=== PATIENT | female | born 1945 | race Caucasian/White ===

== ENCOUNTER → 2023-08-25 08:16 | Outpatient (REF) | payer BC, SELFPAY | LOC: MRI 3T 08:16 | PROVIDERS: ATTENDING PHYSICIAN Specialist; FAMILY PHYSICIAN Family Medicine | DX: M25.511 Pain in right shoulder (principal); Z98.890 Other specified postprocedural states; M19.011 Primary osteoarthritis, right shoulder | CPT/HCPCS: 73221 ==

== ENCOUNTER 2023-10-27 06:51 | Emergency (ER) | payer MEDICARE, BC, SELFPAY ==
[2023-10-27] VITALS (7 sets, daily range): BP systolic 152–184; BP diastolic 73–101; BMI 26.7
--- NOTE | 2023-10-27 07:36 | ED.GENMED ---
History of Present Illness
General
Chief Complaint: Chest Pain
Source: patient
Exam Limitations: none
Time Seen by Provider: 10/27/23 07:19
Nursing documentation reviewed up to this point in time: agreed with
Travel History
Have you had any contact with someone who has COVID-19?: No
Do you have any symptoms of coronavirus? Fever > 100 degrees, chills, cough, shortness of breath, sore throat, loss of taste or smell, muscle aches, or headache?: No
History of Present Illness
History of Present Illness:
78-year-old female presents to the ER for evaluation of chest pain. Patient reports she was awoken by midsternal chest discomfort on 5:30 AM. She reports the chest pain is still there. Because of the discomfort she cannot take a deep breath. She
denies feeing Short of breath. She denies any associated nausea vomiting diaphoresis. She denies any recent illness fever chills cough. She does report she fell a couple of days ago and hit her arm. She denies any head injury . She does report she
is under a lot of stress and reports her nephew recently got killed. She has been eating different foods that she normally would not eat and thought it may be an upset stomach and did take Tums which did not relieve her symptoms. She has no
cardiac history. She is a history of Parkinson's and migraines. none smoker
Past History
Past History
ED Past Medical History: Hypercholesterolemia and Other (migraines)
ED Past Surgical History: Orthopedic (rotator cuff repair)
Social History
Tobacco: Non-smoker
Review of Systems
Review of Systems
Allergies reviewed?: Yes
All Other Systems: ROS reviewed and negative except as documented in HPI and ROS
Constitutional: Reports no symptoms; Denies fever, fatigue or chills
Respiratory: Reports other (pain to chest with deep breath ); Denies trouble breathing
Cardiac: Reports chest pain
ABD/GI: Reports no symptoms
Phy Exam
General Physical Exam
General Presentation: no apparent distress
General age: appears stated age
General Skin: warm and dry
General Habitus: elderly
General Mental: alert
General Hydration: appears well hydrated
Cardiovascular Exam
Cardiovascular Exam: regular rate/rhythm, no murmur and normal peripheral pulses
Pulmonary Exam
Pulmonary Exam: lungs clear, no respiratory distress and other (mild midsternal tenderness no crepitus no ecchymosis to chest )
Musculoskeletal Exam
Musculoskeletal Exam: full ROM and other (Left upper arm ecchymosis nontender)
Scores
Heart Score for Chest Pain Patients
STEMI patient?: Not applicable
Course
Orders/Labs/Results
Orders:
Orders
10/27/23 06:57
Electrocardiogram (*1) Urgent
Reason for Study: Chest Pain
EKG- Treatment ONCE
10/27/23 07:41
Cardiac Monitoring- Treatment ONCE
IV Insert/Care/Rem.- Treatment PRN
CR Chest - 2 Views Urgent
Comment:
Reason For Exam: cp
10/27/23 07:52
Complete Blood Count/With Diff Urgent
Comprehensive Metabolic Panel Urgent
Troponin I Urgent
10/27/23 08:39
DDimer [D-Dimer] Urgent
10/27/23 09:55
Ketorolac [Toradol] 15 mg IV NOW STA
10/27/23 10:43
Electrocardiogram (*1) Stat
Reason for Study: Other
Other Reason for Exam: chest pain
EKG- Treatment ONCE
10/27/23 10:50
Troponin I Urgent
Abnormal Lab Results
10/27/23
07:52
RBC 3.59 L 10^6/uL
(4.20-5.40)
Hgb 11.3 L g/dL
(12.0-16.0)
Hct 33.1 L %
(37.0-47.0)
MCH 31.5 H pg
(27.0-31.0)
MPV 10.6 H fL
(7.4-10.4)
Absolute Neuts (auto) 7.5 H 10^3/uL
(1.4-6.5)
Absolute Monos (auto) 0.8 H 10^3/uL
(0.1-0.6)
Lymphocytes % 16.1 L %
(20.5-51.1)
Glucose 120 H mg/dl
(70-99)
Calcium 10.5 H mg/dl
(8.4-10.2)
10/27/23 07:52
10/27/23 07:52
Vital Signs
Initial and Last Documented VS:
Initial Vital Signs
Pulse Resp BP Pulse Ox
92 20 182/101 96
10/27/23 06:54 10/27/23 06:54 10/27/23 06:54 10/27/23 06:54
Last Documented Vital Signs
Temp Pulse Resp BP Pulse Ox
98.5 F 92 18 164/73 94
10/27/23 07:06 10/27/23 10:30 10/27/23 10:30 10/27/23 10:00 10/27/23 10:30
MDM/Problems Addressed
Differential Diagnosis Includes:
Not limited to acute coronary syndrome, less likely PE musculoskeletal chest pain
MDM/Problems Addressed:
78 old female who presented to the ER for evaluation of chest pain worse with deep breath, not short of breath. She denies any recent fever or chills. She did fall several days ago and has a bruise to left upper arm. On exam she is very tender to
palpation worse with deep breath. She is no cardiac history. She received Toradol here which has given her some relief. She has been monitored here has had 2 negative cardiac troponins neg d dimer neg chest xray. d/c w/ DR Cha stable for
d/c home most likely muscular no other obvious concerning findings. Will DC with Tylenol.
*Radiology
Radiology exam reviewed: radiology read reviewed
*Pulse Oximetry
Patient hypoxic: no
*EKG
Interpretation: normal
Heart Rate: 91
Rate: normal
Rhythm: sinus
Ischemia: no ischemia
*Critical Care Note
Total Time (30-74mins, 75-104mins- exclusive of procedures): Not Applicable
ED Attending Note
-
Portions of this chart may have been created with voice recognition software.� Occasional wrong word or��sound alike� substitutions may have occurred due to the inherent limitations of voice recognition software.
Discharge Plan
Departure
Patient Disposition: Home (Routine Discharge)
Date of Disposition: 10/27/23
Time of Disposition: 12:07
Patient with high blood pressure during this ER visit?: Yes
Condition: Fair
Covid-19: Not Applicable
Discharge Problem:
Chest pain
Instructions: Chest Pain That Is Not Caused by the Heart (DC), BLOOD PRESSURE
Prescriptions:
No Action
atorvastatin 80 MG tablet
80 mg PO DAILY
olanzapine 7.5 MG tablet
7.5 mg PO HS
folic acid 1 MG tablet
1 mg PO DAILY
cyanocobalamin (vitamin B-12) 1,000 MCG capsule
1,000 mcg PO DAILY
Prolia 60 MG/ML syringe
60 mg SQ [id number]
Emgality Syringe 120 MG/ML syringe
120 mg SQ MONTHLY
Referrals:
Jeremi Benoit DO [Family Provider] -
Activity Restrictions/Additional Instructions:
As discussed you may take Tylenol every 6 hours as needed for pain. This is likely muscular pain. Follow-up however with your family doctor the next of days for reevaluation of your symptoms and return if any worsening of symptoms
Interventions
Interventions:
*Risk Screen - Suicide Last Done: 10/27/23 06:54
*General Assessment Last Done: 10/27/23 07:06
*Neglect/Abuse Screening Last Done: 10/27/23 06:54
ED- Fall Risk Assessment Last Done: 10/27/23 08:23
*ED COVID-19 Vaccine History Last Done: 10/27/23 07:06
ED- Cardiac Assessment Last Done: 10/27/23 08:23
Discharge Date and Time
Print Language: NAMIBIAN
[2023-10-27 08:12] LABS: % Basophils 0.5 % (0-2); % Eosinophils 4.7 % (0-6); % Immature Granulocytes 0.3 % (0-0.5); % Lymphocytes 16.1 % (20.5-51.1); % Monocytes 7.3 % (1.7-9.3); % Neutrophils 71.1 % (42.2-75.2); Absolute Basophils 0.1 10^3/uL (0-0.2); Absolute Eosinophils 0.5 10^3/uL (0-0.7); Absolute Lymphocytes 1.7 10^3/uL (1.2-3.4); Absolute Monocytes 0.8 10^3/uL (0.1-0.6); Absolute Neutrophils 7.5 10^3/uL (1.4-6.5); Hematocrit 33.1 % (37.0-47.0); Hemoglobin 11.3 g/dL (12.0-16.0); Mean Corp Hgb Conc. 34.1 g/dL (33.0-37.0); Mean Corpuscular Hgb 31.5 pg (27.0-31.0); Mean Corpuscular Volume 92.2 fL (81.0-99.0); Mean Platelet Volume 10.6 fL (7.4-10.4); Nucleated Red Blood Cells % 0 %; Platelet Count 282 10^3/uL (130-400); Red Blood Cell Count 3.59 10^6/uL (4.20-5.40); Red Cell Dist. Width 13.9 % (11.5-14.5); White Blood Cell Count 10.5 10^3/uL (4.8-10.8)
[2023-10-27 08:16] LABS: ALT (SGPT) 22 U/L (0-35); AST (SGOT) 29 U/L (14-36); Albumin 4.9 g/dl (3.5-5.0); Alkaline Phosphatase 86 U/L (38-126); Blood Urea Nitrogen 11 mg/dl (7-17); Calcium 10.5 mg/dl (8.4-10.2); Carbon Dioxide 25 mmol/L (22-30); Chloride 107 mmol/L (98-107); Estimated Creatinine Clearance 43 ml/min; Glucose 120 mg/dl (70-99); Potassium 3.6 mmol/L (3.5-5.1); Sodium 142 mmol/L (135-145); Total Bilirubin 0.7 mg/dl (0.2-1.3); Total Protein 7.5 g/dl (6.3-8.2); eGFR 58.39
[2023-10-27 08:27] LABS: Troponin I < 0.012 ng/ml
[2023-10-27] MEDS: TORADOL 15 MG IV (10:12)
[2023-10-27 11:20] LABS: Troponin I < 0.012 ng/ml
== END 2023-10-27 12:29 | disposition home or self-care (01) ==
LOC: EMR 06:51
PROVIDERS: Nurse Practitioner; EMERGENCY PHYSICIAN Emergency Medicine; FAMILY PHYSICIAN Family Medicine
DX: R07.89 Other chest pain (principal)
CPT/HCPCS: 99285; 96374; 71046; 80053; 84484; 85025; 85379; 93005

== ENCOUNTER 2024-09-29 15:21 | Outpatient (RCR) | payer BC, SELFPAY | END 2024-09-29 23:59 | disposition home or self-care (01) | LOC: RPT 15:21 | PROVIDERS: ATTENDING PHYSICIAN Urology; FAMILY PHYSICIAN Family Medicine | DX: R15.9 Full incontinence of feces (principal); M62.89 Other specified disorders of muscle; N32.81 Overactive bladder; N39.41 Urge incontinence; N31.9 Neuromuscular dysfunction of bladder, unspecified; Z73.6 Limitation of activities due to disability | CPT/HCPCS: 97110; 97161; 97530 ==

== ENCOUNTER 2024-10-15 09:47 | Outpatient (RCR) | payer BC, SELFPAY | END 2024-10-15 23:59 | disposition home or self-care (01) | LOC: RPT 09:47 | PROVIDERS: ATTENDING PHYSICIAN Urology; FAMILY PHYSICIAN Family Medicine | DX: R15.9 Full incontinence of feces (principal); M62.89 Other specified disorders of muscle; N32.81 Overactive bladder; N39.41 Urge incontinence; N31.9 Neuromuscular dysfunction of bladder, unspecified; Z73.6 Limitation of activities due to disability | CPT/HCPCS: 97110 ==

== ENCOUNTER 2024-11-19 19:00 | Outpatient (RCR) | payer BC, SELFPAY | END 2024-11-20 12:08 | disposition home or self-care (01) | LOC: RPT 19:00 | PROVIDERS: ATTENDING PHYSICIAN Urology; FAMILY PHYSICIAN Family Medicine | DX: R15.9 Full incontinence of feces (principal); M62.89 Other specified disorders of muscle; N32.81 Overactive bladder; N39.41 Urge incontinence; N31.9 Neuromuscular dysfunction of bladder, unspecified; Z73.6 Limitation of activities due to disability | CPT/HCPCS: 97110 ==

== ENCOUNTER 2024-11-28 10:55 | Outpatient (RCR) | payer BC, SELFPAY | END 2024-11-28 23:59 | disposition home or self-care (01) | LOC: RPT 10:55 | PROVIDERS: ATTENDING PHYSICIAN Family Medicine | DX: G20.A1 Parkinson's disease without dyskinesia, without mention of fluctuations (principal); Z73.6 Limitation of activities due to disability; R26.89 Other abnormalities of gait and mobility; M62.81 Muscle weakness (generalized); Z91.81 History of falling | CPT/HCPCS: 97110; 97112; 97116; 97163; 97166; 97530; 97535 ==

== ENCOUNTER 2024-12-02 11:26 | Outpatient (RCR) | payer BC, SELFPAY | END 2024-12-16 06:58 | disposition home or self-care (01) | LOC: RPT 11:26 | PROVIDERS: ATTENDING PHYSICIAN Family Medicine | DX: G20.A1 Parkinson's disease without dyskinesia, without mention of fluctuations (principal); Z73.6 Limitation of activities due to disability; R26.89 Other abnormalities of gait and mobility; M62.81 Muscle weakness (generalized); Z91.81 History of falling | CPT/HCPCS: 97110; 97112; 97116; 97530 ==

== ENCOUNTER 2025-01-08 06:45 | Observation (INO) | payer BC, SELFPAY ==
[2025-01-07 23:06] VITALS: BP 142/77
[2025-01-07 23:48] LABS: Hematocrit 33.4 % (37.0-47.0); Hemoglobin 11.4 g/dL (12.0-16.0); Mean Corp Hgb Conc. 34.1 g/dL (33.0-37.0); Mean Corpuscular Volume 92.3 fL (81.0-99.0); Nucleated Red Blood Cells % 0 %; Platelet Count 165 10^3/uL (130-400); Red Cell Dist. Width 13.3 % (11.5-14.5)
[2025-01-08] VITALS (11 sets, daily range): BP systolic 106–150; BP diastolic 47–76; BMI 25.2; BMI 24.9
[2025-01-08 00:11] LABS: ALT (SGPT) < 10 U/L (0-35); AST (SGOT) 18 U/L (14-36); Albumin 4.8 g/dl (3.5-5.0); Alkaline Phosphatase 46 U/L (38-126); Blood Urea Nitrogen 15 mg/dl (7-17); Calcium 9.9 mg/dl (8.4-10.2); Carbon Dioxide 30 mmol/L (22-30); Chloride 101 mmol/L (98-107); Glucose 104 mg/dl (70-99); Potassium 3.9 mmol/L (3.5-5.1); Sodium 139 mmol/L (135-145); Total Protein 7.3 g/dl (6.3-8.2); eGFR 51.75
[2025-01-08 00:23] LABS: Troponin I < 0.012 ng/ml
--- NOTE | 2025-01-08 02:39 | ED.GENMED ---
History of Present Illness
General
Chief Complaint: Chest Pain
Time Seen by Provider: 01/08/25 01:35
History of Present Illness
History of Present Illness:
see MDM
Past History
Past History
ED Past Medical History: Hypercholesterolemia and Other (migraines)
ED Past Surgical History: Orthopedic (rotator cuff repair)
Social History
Tobacco: Non-smoker
Phy Exam
Physical Exam
Physical Exam:
GENERAL: Alert , in no apparent distress actually looks very well-appearing
EYE: pupils equal and reactive
NECK: Supple
ENT: o/p clr, mmm.
CARDIAC: Regular rate and rhythm .
LUNGS: Clear breath sounds bilaterally, no acute respiratory distress, no wheezes/rales/rhonchi
ABDOMEN: Soft, mild epigastric tenderness no r/g, no cvat, normal bowel sounds
NEUROLOGICAL: Alert and oriented, no focal neuro deficits
SKIN: Warm and dry, skin intact.
MUSCULOSKELETAL: No edema, well perfused. neg killian's sign
PSYCH: Normal and appropriate interaction.
Scores
Heart Score for Chest Pain Patients
STEMI patient?: No
History: Moderately Suspicious
ECG: Normal
Age: >/= 65 years
Risk Factors: 1 or 2 Risk Factors
Troponin: </= Normal Limit
Heart Score for Chest Pain Patients: 4
Heart Score Risk: 20.3% MACE over next 6 weeks
Course
Orders/Labs/Results
Orders:
Orders
01/07/25 23:09
ECG [Electrocardiogram (*1)] Urgent
Reason for Study: Chest Pain
EKG- Treatment ONCE
01/07/25 23:31
Complete Blood Count/With Diff Urgent
Comprehensive Metabolic Panel Urgent
Lipase Urgent
Comment: ADD ON
Troponin I Urgent
01/08/25 02:24
Electrocardiogram (*1) Urgent
Reason for Study: Chest Pain
EKG- Treatment ONCE
Diphenhydramine [Benadryl] 50 mg IV NOW STA
Hydrocortisone Sod Succinate [Solu-Cortef] 200 mg IV NOW STA
Metoclopramide [Reglan] 10 mg IV NOW STA
01/08/25 02:30
0.9% Sodium Chloride 1000 ml [Nss] 1,000 ml IV BOLUS
01/08/25 02:40
Add On- LAB Urgent
Tests Added?: lipase
Troponin I Urgent
01/08/25 02:41
D-Dimer Urgent
01/08/25 03:26
CT Abd/Pel (IV only)-DH only Urgent
Comment:
Reason For Exam: nausea, vomiting, upper abd pain
CR Chest - 2 Views Urgent
Comment:
Reason For Exam: chsest pressure
01/08/25 04:58
US Abdomen Complete/Upper Urgent
Comment:
Reason For Exam: uppera bdpain, vomiting, nausea, dilated cbd
01/08/25 06:30
CARDIOLOGY CONSULT Routine
Consulting Provider: Yong Huddleston
Was physician already notified: No
Reason for consult: chest pain
01/08/25 06:32
Consult Notification Routine
Specialty to Notify: Cardiology
01/08/25 06:35
Mrcp Without MR [MR Mrcp Without] Routine
Comment:
Reason For Exam: gall bladder dilation, with MRI
Recent pill cam endoscopy?: No
01/08/25 06:36
Admit/Transfer Patient As Directed
Co-Sign Provider:
Level of Care: Observation services
Assign to:: Telemetry
Physician / Group: Hospitalist
Diagnosis: chest pain
Reason for Telemetry: Chest Pain syndromes
Date to Stop Telemetry: 01/10/25
Time to Stop Telemetry: 11:00
PRN Pain Medication Management As Directed
May give lesser potent ordered pain med per pt: Yes
preference::
Protocol:: Medication orders for pain may be administered in a
manner that supports deferring to patient preference
when the pt is:
- Requesting an ordered lesser potent pain medication.
Least to most potent pain medications are defined
as: acetaminophen < NSAID < tramadol < opioids
(morphine, oxycodone, hydromorphone).
- Requesting a lesser dose of the same medication IF
ORDERED.
- Requesting a less intrusive route of administration
if both routes are prescribed by the provider (PO <
IV).
01/08/25 06:37
Code Status As Directed
Resuscitation Status: Full Code
01/08/25 06:42
UA Reflex to Culture [Urinalysis Reflex To Culture] Stat
Ipratropium/Albuterol Sulfate [Duoneb] 3 ml INH R Q4HPRN PRN
01/10/25 11:00
DC Protocol for Telemetry ONCE
Abnormal Lab Results
01/07/25
23:31
RBC 3.62 L 10^6/uL
(4.20-5.40)
Hgb 11.4 L g/dL
(12.0-16.0)
Hct 33.4 L %
(37.0-47.0)
MCH 31.5 H pg
(27.0-31.0)
MPV 12.8 H fL
(7.4-10.4)
Absolute Monos (auto) 0.7 H 10^3/uL
(0.1-0.6)
Monocytes % 10.2 H %
(1.7-9.3)
Creatinine 1.1 H mg/dL
(0.6-1.0)
Glucose 104 H mg/dl
(70-99)
01/07/25 23:31
01/07/25 23:31
Vital Signs
Initial and Last Documented VS:
Initial Vital Signs
Temp Pulse Resp BP Pulse Ox
37.0 C 84 18 142/77 100
01/07/25 23:06 01/07/25 23:06 01/07/25 23:06 01/07/25 23:06 01/07/25 23:06
Last Documented Vital Signs
Temp Pulse Resp BP Pulse Ox
37.0 C 77 16 150/65 95
01/07/25 23:06 01/08/25 06:00 01/08/25 06:00 01/08/25 06:00 01/08/25 06:00
MDM/Problems Addressed
Differential Diagnosis Includes:
see mdm
MDM/Problems Addressed:
Note:
CHIEF COMPLAINT(S)
Chest pressure with associated nausea and jaw pain.
HISTORY OF PRESENT ILLNESS
The patient is a female presenting with reports of chest pressure that began at approximately 6:30 PM and has mildly progressively worsened throughout the evening. She describes the sensation as a pressure, not severe, but significant, enough to
rate as an eight out of ten in discomfort. Prior to this, she experienced nausea for about three days, which she described as intermittent, with a marked increase in severity around the same time the chest pressure began. Along with the chest
pressure, the patient reports associated jaw pain. She notes that the chest pressure does worsen with deep breathing and this is accompanied by feelings of shortness of breath. The patient has a history of vomiting twice in the past five days, but
denies diarrhea, constipation, fever, or chills.
The patient denies any history of blood clots, recent surgery, prolonged travel, or current hormone therapy. She has not been eating well in recent days due to nausea. Her medical history is significant for migraines and Parkinsons disease, for
which she takes carbidopa/levodopa. The patient denies having had pancreatitis and confirms retaining her gallbladder. Her past surgical history includes an appendectomy at age 14 following the discovery of a ruptured appendix.
CHRONIC MEDICAL CONDITIONS SIGNIFICANTLY AFFECTING CARE
1. Migraine
2. Parkinsons disease
PAST SURGICAL HISTORY
1. Appendectomy at age 14
REVIEW OF SYSTEMS
- Gastrointestinal: Nausea for three days, two episodes of vomiting in the past five days, last bowel movement yesterday. No diarrhea or constipation.
- Cardiovascular: Chest pressure rated as eight out of ten.
- Respiratory: Shortness of breath with chest pressure exacerbated on deep breathing.
- Neurological: Jaw pain, headache.
- General: No fever or chills.
PHYSICAL EXAM
- Cardiovascular: Chest pressure present, located in the chest area but not tender to touch.
- Nursing notes reviewed and vital signs reviewed.
PROBLEM LIST
Acute:
1. Chest pressure
2. Nausea and vomiting
3. Jaw pain
4. Headache
Chronic:
1. Migraine
2. Parkinsons disease
PLAN
1. Obtain repeat blood work to assess cardiac markers, given the concern for possible cardiac issues related to stress on the heart.
2. Initiate intravenous fluid therapy due to reduced oral intake and hydration status.
3. Consider abdominal imaging to evaluate for potential gastrointestinal causes of nausea and vomiting, such as gallstones or pancreatitis.
4. Administer Reglan (metoclopramide) with a small dose of intravenous Benadryl for both nausea and headache management, considering its efficacy in these situations.
DIFFERENTIAL DIAGNOSIS
The Differential Diagnosis includes, in no particular order and is not limited to:
1. Acute coronary syndrome
2. Gastroesophageal reflux disease
3. Peptic ulcer disease
4. Gallstones
5. Pancreatitis
6. Gastritis
7. Myocardial ischemia
8. Viral syndrome
9. Costochondritis
10. Musculoskeletal chest pain
01/08/25 - 05:04
- Patient reports slight improvement in nausea and pain, likely due to migraine management rather than pain medication.
- Cardiac enzymes are normal, ruling out myocardial infarction as the cause of chest pressure.
- CT scan reveals a distended gallbladder and dilated common bile duct, suggesting possible gallstones.
- Plan initiated for immediate ultrasound to investigate possible ductal obstruction by gallstones.
- If ultrasound is inconclusive, an MRI will be used to further assess the common bile duct.
- Discussed potential hospital admission with the patient, given symptoms and need for additional diagnostic imaging.
- GI consultation planned post-ultrasound results to determine need for possible surgical intervention.
- Provided reassurance regarding normal cardiac findings, reducing immediate concern for cardiac etiology of chest pressure.
*Pulse Oximetry
SaO2: 96
Oxygen Mode of Delivery: Room air
Patient hypoxic: no (100)
*Critical Care Note
Total Time (30-74mins, 75-104mins- exclusive of procedures): Not Applicable
ED Attending Note
-
Portions of this chart may have been created with voice recognition software.� Occasional wrong word or��sound alike� substitutions may have occurred due to the inherent limitations of voice recognition software.
Discharge Plan
Departure
Patient Disposition: Admit
Date of Disposition: 01/08/25
Time of Disposition: 06:00
Admit to: Med/Surg
Presentation/result/management discussed w/ accepting MD/DO: Hospitalist
Condition: Fair
Covid-19: Not Applicable
Discharge Problem:
Vomiting, Dilated cbd, acquired, Chest pain
Interventions
Interventions:
*Risk Screen - Suicide Last Done: 01/07/25 23:06
*General Assessment Last Done: 01/08/25 01:42
*Neglect/Abuse Screening Last Done: 01/07/25 23:06
*ED- Fall Risk Assessment Last Done: 01/08/25 01:42
*ED COVID-19 Vaccine History Last Done: 01/08/25 01:42
ED- Cardiac Assessment Last Done: 01/08/25 05:10
[2025-01-08] MEDS: BENADRYL 50 MG IV (02:43)
[2025-01-08] MEDS: NSS 1000 IV (02:43)
[2025-01-08] MEDS: REGLAN 10 MG IV (02:45)
[2025-01-08] MEDS: SOLU-CORTEF 200 MG IV (02:46)
[2025-01-08 03:03] LABS: D-Dimer < 0.27 ug/mlFEU (0.00-0.50)
[2025-01-08 03:11] LABS: Lipase 145 U/L (23-300)
[2025-01-08 03:13] LABS: Troponin I < 0.012 ng/ml
--- NOTE | 2025-01-08 06:39 | HPS.HSE ---
Family Physician
-
Family Physician: Jeremi Benoit
Chief Complaint
-
chest pain
History of Present Illness
79yo F with PMHx of Parkinsons, osteoporosis, migraines came with 5 days of chest pressure associated with SOB, intermittent and not related to excertion. She also did not have appetite for whole 5 days. No fever, no overt abdominal pain, no
diarrea, no dysuria, no persistent respiratory symptoms. In ED a number of test done and only concern is distended gall bladder and mild CBD dilation with normal LFT and lipase
Medical History
Past Medical History
Past Medical History: Reports Other
Additional Past Medical History:
see HPI
Past Surgical History: Reports None
Social History
Tobacco: Non-smoker
Alcohol: None
Drug: None
Family History
Family History: Not pertinent
Allergies / Home Medications
Allergies reflects when Allergies were last updated in [employer]
Home Medications with original date entered in [employer]
Allergy/Medication List:
Allergies
Allergy/AdvReac Type Severity Reaction Status Date / Time
azithromycin Allergy Rash Verified 01/07/25 23:09
IV contrast dye Allergy Rash Uncoded 01/07/25 23:09
Home Medications
atorvastatin 80 mg tablet 80 mg PO DAILY 10/14/20
denosumab 60 mg/mL subcutaneous syringe (Prolia) 60 mg SQ [id number] 10/15/20
Vitamin B3 2,000 units PO DAILY 01/08/25
carbidopa 25 mg-levodopa 100 mg tablet 2 tab PO TID 01/08/25
Review of Systems
-
History Source: Patient
A 12 point ROS was completed and negative except as noted: Yes
Physical Exam
Vital Signs
Vital Signs
Temp Pulse Resp BP Pulse Ox
98.6 F 77 16 150/65 95
01/07/25 23:06 01/08/25 06:00 01/08/25 06:00 01/08/25 06:00 01/08/25 06:00
Physical Exam
General: Well Nourished, No Apparent Distress and Comfortable
HEENT: NormoCephalic, Anicteric and Moist mucous membranes
Respiratory: Clear
Cardiac: S1/S2 and Regular Rhythm; No Tachycardia
GI: Soft, Non Tender, Non Distended and Normal Bowel Sounds
Genito-urinary: No costovertebral tender
Musculoskeletal: No Clubbing, No Cyanosis and No Edema
Neuro: Awake, Alert, Oriented, AO x 3 and No Motor Deficits
Psych: Calm
Laboratory Results
-
01/07/25 23:31
01/07/25 23:31
Laboratory Results
Total Bilirubin 0.8 mg/dl (0.2-1.3) 01/07/25 23:31
AST 18 U/L (14-36) 01/07/25 23:31
ALT < 10 U/L (0-35) 01/07/25 23:31
Alkaline Phosphatase 46 U/L (38-126) 01/07/25 23:31
Troponin I < 0.012 ng/ml 01/08/25 02:40
Lipase 145 U/L (23-300) 01/07/25 23:31
Data Reviewed
-
Diagnostic Radiology: Report Reviewed by me
CT Scan: Report Reviewed by me
Lab Data: Labs Reviewed by me
Impression/Plan
-
A/P:
#Concern for cholecystitis
#dilated bile duct
No overt signs of infection
MRCP with MRI
Hold ABx until results
cannot exclude GERD - start PPI
#Hyperinflated lungs
possible COPD
start nebulizer
Outpatient PFT with PCP advised
#Mild urinary bladder wall thickening
UA
#Chest pain
Trop WNL
EKG without acute ischemic changes
Cardio consult
#PArkinsons
#Migraine
#HLD
#Osteoporosis
cont home meds
DVT ppx hep
Full code
I have spent 78min admitting the patient
--- NOTE | 2025-01-08 08:05 | W.PN.UPDATE ---
Update Note
Progress Note Update
79-year-old woman with 5 days of chest pressure and dyspnea. Symptoms are not exertional. Anorexia.
PMH: Parkinson's, migraines, hypercholesterolemia, suspected COPD
PSH: None
SH/FH: See below
Outpatient meds: Atorvastatin, Sinemet, Prolia
ROS, rest of history: See below
150/65, pulse 77, respirate 16, afebrile, sats 95%
Hemoglobin 11.4, negative D-dimer, BUN/creatinine 15 and 1.1, troponin undetectable
ECG sinus rhythm nonspecific T wave changes
Abdominal ultrasound: Mildly dilated gallbladder and mildly enlarged common bile duct
Abdominal pelvic: CT bladder wall thickening
Chest x-ray: NAD
--- NOTE | 2025-01-08 08:53 | CON.CAR ---
Addendum entered and electronically signed by Pasquale Ledezma MD 01/08/25 09:39:
79-year-old woman with 5 days of chest pressure and dyspnea. Symptoms are not exertional. Anorexia.
PMH: Parkinson's, migraines, hypercholesterolemia, suspected COPD
PSH: None
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
Outpatient meds: Atorvastatin, Sinemet, Prolia
ROS, rest of history: See below
150/65, pulse 77, resprate 16, afebrile, sats 95%, head neck exam unremarkable, lungs are clear, systolic murmur probable that is moderate, possibly MR, abdomen benign extremities without clubbing cyanosis or edema
Hemoglobin 11.4, negative D-dimer, BUN/creatinine 15 and 1.1, troponin undetectable
ECG sinus rhythm nonspecific T wave changes
Abdominal ultrasound: Mildly dilated gallbladder and mildly enlarged common bile duct
Abdominal pelvic: CT bladder wall thickening
Chest x-ray: NAD
Impression:
Chest tightness
Suspected mild to moderate aortic stenosis, possibly with mitral regurgitation
Dilated common bile duct
Plan:
As outlined below by Myra Barreto.
Reviewed and detailed and agree unless otherwise specified.
Suspect her symptoms are noncardiac in nature given unremarkable EKG and undetectable troponin.
Check echocardiogram
However, probable eventual ischemic evaluation even though I am hopeful that her symptoms will proved to be noncardiac in nature
If MRCP suggest stones, would be okay to proceed with sphincterotomy prior to ischemic evaluation
We will follow.
Original Note:
Consultation
Consultation Request
Date/Time Consultation Performed: 01/08/25
Requesting Provider: Dr. Del Angel
Performing Provider: Bev Barreto PA-C for Dr. SANDY Ledezma
Reason for Consultation: CP, SOB
Medical History
-
Chief Complaint: CP, SOB
History of Present Illness:
Patient is a 79-year-old female with past medical history of Parkinson disease, migraines, hyperlipidemia, osteoporosis who presented to [facility] for evaluation of chest pressure. She reports last evening around 6:30 PM she was sitting
at her table and developed pressure across her bilateral chest and upper abdomen and felt as though she could not catch her breath. She had associated nausea and some jaw soreness as well. She reports she attempted to 'wait it out'. However at 11
PM it was still there so she came to the emergency room for further evaluation. She was given IV fluid as well as dose of Reglan, Benadryl, and Solu-Cortef. She reports her chest pain and shortness of breath have improved. She states she remains
with some nausea. EKG sinus rhythm without acute ST abnormalities and troponins negative x 2. Cardiology consulted for evaluation. She has never had this pain before. She is for MRCP today due to concern for possible cholecystitis.
PMH:
Parkinson's disease
Migraines
HLD
Osteoporosis
Past Medical History
Past Medical History: Other (in HPI)
Social History
Tobacco: Non-Smoker
Alcohol: None
Personal:
Living: With Family
Employment: Retired
Family History
Family History: Cancer and Other (heart disease)
Allergies / Home Medications
Allergy/AdvReac Type Severity Reaction Status Date / Time
azithromycin Allergy Rash Verified 01/07/25 23:09
IV contrast dye Allergy Rash Uncoded 01/07/25 23:09
�Medication �Instructions �Recorded �Confirmed �Type
atorvastatin 80 mg tablet 80 mg PO DAILY 10/14/20 01/08/25 History
denosumab 60 mg/mL subcutaneous 60 mg SQ [id number] 10/15/20 01/08/25 History
syringe (Prolia)
carbidopa ER 25 mg-levodopa 100 mg 2 tab PO TID 01/08/25 01/08/25 History
tablet,extended release
mirabegron 50 mg tablet,extended 50 mg PO DAILY 01/08/25 01/08/25 History
release 24 hr (Myrbetriq)
Review of Systems
-
History Source: Patient
All other systems: Negative unless noted
Physical Exam
Vital Signs
Temp Pulse Resp BP Pulse Ox
98.6 F 77 16 150/65 95
01/07/25 23:06 01/08/25 06:00 01/08/25 06:00 01/08/25 06:00 01/08/25 06:00
Lab Results
01/07/25 23:31
01/07/25 23:31
Troponin I < 0.012 ng/ml 01/08/25 02:40
Physical Exam
General: No Apparent Distress and Comfortable
HEENT: Normocephalic, Anicteric and Moist Mucous Membranes
Respiratory: Clear and Non Labored Respirations
Cardiac: S1/S2, Regular Rhythm and Murmur
GI: Soft, Non Tender, Non Distended and Normal Bowel Sounds
Musculoskeletal: No Clubbing, No Cyanosis and No Edema
Skin: Warm and Dry
Neuro: AO x 3
Impression / Plan
-
Primary Pawn Broker: none
Assessment:
Presentation with CP, SOB, nausea
Negative trops x2
Murmur
Concern for acute cholecystitis
Parkinson's disease
Migraines
HLD
Osteoporosis
ECHO 01/08/25: pending
Plan:
- Patient presented with episode of chest pain, shortness of breath, nausea
- Now improved and chest pain-free. Reports remains with some residual nausea
- EKG sinus rhythm with nonspecific ST T wave changes
- Troponins negative x 2
- Chest x-ray without acute cardiopulmonary process
- Check echo, ordered by me
- For MRCP today to rule out cholecystitis. Lipase and LFTs within normal limits
- May consider for eventual ischemic eval
Data Reviewed
-
EKG: Tracing Personally Visualized and interpreted
Radiology: Report Reviewed by me
Labs: Labs Reviewed by me
Old Records: Reviewed
[2025-01-08 11:23] LABS: Urine Character Clear (Clear)
[2025-01-08] MEDS: PROTONIX 40 MG PO (11:23)
[2025-01-08] MEDS: LIPITOR 80 MG PO (11:23)
[2025-01-08] MEDS: SINEMET 25-100 2 TABLET PO ×3 (11:23→21:21)
[2025-01-08] MEDS: HEPARIN 5000 UNITS SC ×2 (11:23→16:59)
--- NOTE | 2025-01-08 11:27 | CM ---
Patient seen at bedside on . Patient stated that she lives with her on a 2 story home with 2 steps to enter and 13 to 2nd floor. Patient stated that she is independent of ADL's and IADL's but is currently not driving. Patient PCP is
Dr. Lepe and she uses the [facility] in [place]. Patient stated that she plans to go home with no needs at this time. Patient completed OBS/RENDON form and signed form placed on chart. CM will continue to follow for discharge planning needs.
Plan; home with no needs vs home with VN
[2025-01-08 12:04] LABS: Urine Urothelial Cell 0-2 /LPF (FEW); Urine White Cell 0-2 /HPF (0-5)
[2025-01-08] MEDS: TYLENOL 650 MG PO (20:28)
[2025-01-09] VITALS (7 sets, daily range): BP systolic 102–133; BP diastolic 49–64
[2025-01-09] MEDS: HEPARIN 5000 UNITS SC ×3 (00:55→16:31)
--- NOTE | 2025-01-09 00:55 | W.PN.UPDATE ---
Update Note
Progress Note Update
~ 12:40 am TT and asked to see patient for rash on abdomen and b/l inner feet. Patient reports that she has an allergy to contrast dye. She reports that she had a CT and MRI early am yesterday, was pretreated prior to testing and has not had any
allergic symptoms. Patient reports that today around midnight, she started with itching on b/l feet and abdomen, which has intensified. Patient denies any SOB, chest discomfort, palpitations, nausea/vomiting. Vital signs are stable: HR 73, BP
131/50, Temp 98.6, Resp 16, 96% on room air.
Patient evaluated. Generalized, erythematous, flat, pruritic, rash covers entire abdomen and is radiating to sides and starting on back (RN to aline area). No rash on b/l legs. Small area of similar rash on inner b/l ankles that is slightly pink.
Lungs are clear, no wheezing, no stridor, noted. Ordered Benadryl 25 mg IV x 1 and Zyrtec 5 mg PO x 1.
Recheck ~ 1:50 am, only slight improvement in rash, still pruritic. Ordered additional Benadryl 25 mg IV x 1.
[2025-01-09] MEDS: BENADRYL 25 MG IV ×4 (01:06→20:29)
[2025-01-09] MEDS: ZYRTEC 5 MG PO (01:06)
[2025-01-09] MEDS: TYLENOL 1000 MG PO ×3 (01:37→18:30)
[2025-01-09] MEDS: LIPITOR 80 MG PO (08:26)
[2025-01-09] MEDS: PROTONIX 40 MG PO (08:26)
[2025-01-09] MEDS: SINEMET 25-100 2 TABLET PO ×3 (08:26→22:22)
--- NOTE | 2025-01-09 12:06 | W.PN.CARDCBS ---
Addendum entered and electronically signed by Pasquale Ledezma MD 01/09/25 17:16:
79-year-old woman with 5 days of chest pressure and dyspnea. Symptoms are not exertional. Anorexia.
PMH: Parkinson's, migraines, hypercholesterolemia, suspected COPD
PSH: None
Current medications: Atorvastatin 80 mg a day, Sinemet, pantoprazole, subcu heparin
Major complaint is pruritus which is new, no new medications
116/50, pulse 82, respiratory rate 16,, systolic murmur, lungs clear, abdomen benign, extremities without significant edema, neuro nonfocal
New labs today
MRCP: Mild intrahepatic bile duct dilatation and common hepatic duct and common bile duct dilatation, no stones or mass
Impression:
See below as per Mariana S - reviewed in detail and agree., Unless otherwise specified
Plan:
She is stable from a cardiac standpoint. No additional chest discomfort. Echo shows mild aortic stenosis, troponin and EKG were unremarkable.
Outpatient follow-up and stress testing arranged
We will sign off, please call if questions.
Original Note:
Today's Communication / Plan
-
Continue lipitor
OP stress testing and follow up arranged
Impression / Plan
-
Primary Doctor Of Nurse Anesthesia: none, initially seen by Dr. SANDY Ledezma
Assessment:
Presented with CP, SOB, nausea
Negative trops x2
Mild by echo 01/09/2025
Concern for acute cholecystitis
Parkinson's disease
Migraines
HLD
Osteoporosis
Echo 01/08/2025: EF 71%, mild MR, mild with peak/mean gradients 21/13 mmHg, SINA 1.5 cm�, mild AR, trace TR
Plan:
-Patient presented with episode of chest pain, shortness of breath, nausea. Remains chest pain-free overnight. No complaints this AM other than rash.
-Troponin negative x 2. EKG sinus rhythm with nonspecific ST-T wave changes.
-Echo 01/08 revealed preserved EF with no RWMA as noted above.
-She has been arranged for outpatient stress test to evaluate for coronary artery disease.
-Abdominal ultrasound 01/08/2025 with mildly prominent size gallbladder with mildly enlarged common bile duct. MRCP 01/08/2025 without evidence of bile duct calculus or obstructing mass.
-LFTs within normal limits. Continue Lipitor 80 mg daily.
-Outpatient cardiology follow-up arranged.
HPI: Patient is a 79-year-old female with past medical history of Parkinson disease, migraines, hyperlipidemia, osteoporosis who presented to [facility] for evaluation of chest pressure. She reports last evening around 6:30 PM she was
sitting at her table and developed pressure across her bilateral chest and upper abdomen and felt as though she could not catch her breath. She had associated nausea and some jaw soreness as well. She reports she attempted to 'wait it out'.
However at 11 PM it was still there so she came to the emergency room for further evaluation. She was given IV fluid as well as dose of Reglan, Benadryl, and Solu-Cortef. She reports her chest pain and shortness of breath have improved. She
states she remains with some nausea. EKG sinus rhythm without acute ST abnormalities and troponins negative x 2. Cardiology consulted for evaluation. She has never had this pain before. She is for MRCP today due to concern for possible
cholecystitis.
Progress Note - Doctor Of Nurse Anesthesia
Subjective
Date of Service: January 09, 2025
No further chest pain.
Objective
Labs:
01/07/25 23:31
01/07/25 23:31
Labs
Hgb 11.4 g/dL (12.0-16.0) L 01/07/25 23:31
Hct 33.4 % (37.0-47.0) L 01/07/25 23:31
Plt Count 165 10^3/uL (130-400) 01/07/25 23:31
Sodium 139 mmol/L (135-145) 01/07/25 23:31
Potassium 3.9 mmol/L (3.5-5.1) 01/07/25 23:31
BUN 15 mg/dl (7-17) 01/07/25 23:31
Creatinine 1.1 mg/dL (0.6-1.0) H 01/07/25 23:31
Glucose 104 mg/dl (70-99) H 01/07/25 23:31
Troponins
01/07/25 01/08/25
23:31 02:40
Troponin I < 0.012 < 0.012
Vital Signs and I&O:
Vital Signs
Temp Pulse Resp BP Pulse Ox
98.0 F 74 16 133/55 98
01/09/25 07:30 01/09/25 07:30 01/09/25 07:30 01/09/25 07:30 01/09/25 07:30
Vital Signs
Temp Pulse Resp BP Pulse Ox
98.0 F 74 16 133/55 98
01/09/25 07:30 01/09/25 07:30 01/09/25 07:30 01/09/25 07:30 01/09/25 07:30
Intake & Output
01/07/25 01/08/25 01/09/25 01/10/25
06:59 06:59 06:59 06:59
Intake Total 1080 / 1080
Balance 1080 / 1080
Physical Exam
Physical Exam
GEN: No distress, awake, alert, oriented x3
HEENT: supple, anicteric, mmm
LUNGS: CTA b/l, no wheezes/rales
CV: Reg, S1/S2, 1/6 syst murmur
EXT: No clubbing, cyanosis, or edema
NEURO: Gross non-focal
SKIN: Warm, dry
--- NOTE | 2025-01-09 14:06 | CON.GI ---
Consultation
-
Date/Time Consultation Performed: 01/09/25
Performing Provider: Will Howard MD
Reason for Consultation: cheset pain, dilated ducts
Medical History
Chief Complaint / HPI
Chief Complaint: chest pain
History of Present Illness:
The patient is a 79-year-old female past medical history as noted presents with chest pain. This happened acutely, without any symptoms like this before. This was not related to eating or exercise. She describes a pressure sensation that went to
her jaw with associated nausea. This did not radiate to her back. Again, she never had symptoms like this before. She has had no GI issues, and leading up to this is not had any weight loss, abdominal pain, nausea, vomiting. She is feeling much
better today, with no further issues, and tolerating diet without difficulty. Workup here did show initially CT scan with IV contrast a prominent gallbladder with mildly enlarged common bile duct. Ultrasound showed mildly prominent gallbladder but
no obvious stones. MRCP without contrast showed normal gallbladder and mild central intrahepatic duct dilation as well as common hepatic duct and common bile ducts without evidence of calculus or mass. She never had any significant GI issues or
she camp recreation specialist in the past. She denies any melena hematochezia or weight loss.
Past Medical History
Past Medical History: Other (Parkinson's, migraines, high cholesterol, osteoporosis)
Past Surgical History: Other (Rotator cuff)
Social History
Tobacco: Non-Smoker
Alcohol: None
Family History
Family History: Reviewed & Not Pertinent
Allergies / Home Medications
Allergy/AdvReac Type Severity Reaction Status Date / Time
azithromycin Allergy Rash Verified 01/07/25 23:09
Iodinated Contrast Media Allergy Rash Verified 01/08/25 19:25
�Medication �Instructions �Recorded
atorvastatin 80 mg tablet 80 mg PO DAILY High Cholesterol 10/14/20
denosumab 60 mg/mL subcutaneous 60 mg SQ [id number] bone health 10/15/20
syringe (Prolia)
carbidopa ER 25 mg-levodopa 100 mg 2 tab PO TID movement disorder 01/08/25
tablet,extended release
mirabegron 50 mg tablet,extended 50 mg PO DAILY Urinary Issue 01/08/25
release 24 hr (Myrbetriq)
Review of Systems
-
All other systems: A 12 pt ROS was Negative except as stated above in HPI
Vital Signs
Temp Pulse Resp BP Pulse Ox
97.6 F 82 16 116/50 93
01/09/25 12:00 01/09/25 12:00 01/09/25 12:00 01/09/25 12:00 01/09/25 12:00
Physical Exam
Exam
General: NAD
HEENT: MMM, anicteric, no lymphadenopathy
Heart: Regular, no murmurs
Lungs: CTA bilaterally
Abdomen: normal bowel sounds, soft, no tenderness, no rebound or guarding, no masses, bruits or ascites
Extremeties: no edema
Skin: no rashes
Results
WBC 6.4 10^3/uL (4.8-10.8) 01/07/25 23:31
Hgb 11.4 g/dL (12.0-16.0) L 01/07/25 23:31
Hct 33.4 % (37.0-47.0) L 01/07/25 23:31
MCV 92.3 fL (81.0-99.0) 01/07/25 23:31
Plt Count 165 10^3/uL (130-400) 01/07/25 23:31
Absolute Neuts (auto) 2.9 10^3/uL (1.4-6.5) 01/07/25 23:31
Sodium 139 mmol/L (135-145) 01/07/25 23:31
Potassium 3.9 mmol/L (3.5-5.1) 01/07/25 23:31
Chloride 101 mmol/L (98-107) 01/07/25 23:31
Carbon Dioxide 30 mmol/L (22-30) 01/07/25:
BUN 15 mg/dl (7-17) 01/07/25:
Creatinine 1.1 mg/dL (0.6-1.0) H 01/07/25
Calcium 9.9 mg/dl (8.4-10.2) 01/07/25
Total Bilirubin 0.8 mg/dl (0.2-1.3) 01/07/25
AST 18 U/L (14-36) 01/07/25:
ALT < 10 U/L (0-35) 01/07/25
Alkaline Phosphatase 46 U/L (38-126) 01/07/25
Lipase 145 U/L (23-300) 01/07/25
Diagnostic Image Results:
CT with iv contrast:
IMPRESSION:
Gallbladder somewhat prominent in size without findings to confirm cholelithiasis. Mildly enlarged common bile duct without findings to confirm intrahepatic biliary tract dilatation. Please see separate concurrent Abdominal Ultrasound report.
At least mild relative diffuse thickening of the wall the urinary bladder due to underdistention. Other etiology such as cystitis cannot be excluded. Suggest correlation with urinalysis.
Subcentimeter low-attenuation right renal lesion too small to characterize.
US:
IMPRESSION: Mildly prominent size gallbladder and mildly enlarged common bile duct.
Otherwise, unremarkable Abdominal ultrasound.
MRCP:
IMPRESSION: Normal appearance of the gallbladder.
Mild central intrahepatic bile duct dilation with mild dilation of the common hepatic duct and the common bile duct. There is no evidence for bile duct calculus. There is no evidence for an obstructing mass. Of note, patient's liver function tests
are within normal limits on January 07, 2025.
Prior GI Procedures:
EGD:
Colonoscopy:
Assessment / Plan
-
1. Chest pain/dilated ducts: Overall atypical chest pain, unclear etiology. Her ducts are mildly dilated, though LFTs are normal and CT scan with contrast did not show any obvious pancreatic mass, ultrasound without any obvious gallstones, MRCP
without any obvious stones or stricture. Again, with normal LFTs biliary colic seems much less likely though not completely excluded, and neither is pancreatic malignancy though again does seem less likely. At this point given dilated ducts will
repeat MRI with and without contrast to further assess pancreatic anatomy. Will continue trend LFTs, and if MRI and LFTs are normal then is okay to DC from GI standpoint.
-
-
Thank you for consultation and allowing me to participate in the patient's care. Please call the refrigeration lead GI physician during the after hours with any questions or concerns.
--- NOTE | 2025-01-09 14:49 | W.PN.HOSP.TC ---
Today's Communication/Plan
-
GI consult
DC planning
Assessment / Plan
Assessment / Plan
A/P:
Chest pressure with nausea and decreased appetite for 5 days
Imaging initially raise concern for gallbladder disease/biliary ductal disease
MRI of abdomen and MRCP shows unexpired biliary ductal dilatation but no gallbladder disease. LFTs and lipase were normal. Unclear etiology for ductal dilatation. Consult GI
Had a cardiac evaluation for chest pressure which showed no evidence of acute coronary syndrome. Echo noted. Appreciate cardiology input. No further inpatient recommendation. The plan to arrange outpatient stress test.
cannot exclude GERD - start PPI
#Hyperinflated lungs
possible COPD
Asymptomatic without wheeze currently
Outpatient PFT with PCP advised
#Mild urinary bladder wall thickening
Asymptomatic without dysuria frequency of urine. Suspect the gallbladder wall thickening may be secondary to underdistention
UA shows no pyuria
#PArkinsons
#Migraine
#HLD
#Osteoporosis
cont home meds
DVT ppx hep
Full code
Tolerating diet.
Will obtain a GI eval and depending we will have discharge plan for today
Anticipated Discharge: Today
Subjective/Interval History
-
Date of Service: January 09, 2025
No further chest pressure. Good appetite now. Harder lunch without any issues.
Never had GI issues, GERD, biliary disease, gallbladder disease.
It all started 5 days ago when she started to have intense nausea where she could not eat and then 2 days ago she started out of chest pressure which was intermittent and continuous at times so she presented to the hospital.
She had some itching issue yesterday but none today.
She apparently is allergic to IV contrast media but she did get premedication.
No fever chills.
Denies any shortness of breath.
No lightheadedness.
Objective Data
-
Vital Signs:
Vital Signs
Temp Pulse Resp BP Pulse Ox
97.6 F 82 16 116/50 93
01/09/25 12:00 01/09/25 12:00 01/09/25 12:00 01/09/25 12:00 01/09/25 12:00
I&O
01/08/25 01/09/25 01/10/25
06:59 06:59 06:59
Intake Total 1080 / 1080
Balance 1080 / 1080
Physical Exam
-
General: Comfortable
Respiratory: Non Labored Respirations; Negative Accessory Resp Muscle Use
Cardiac: Regular Rhythm and S1/S2; Negative Tachycardic
GI: Soft, Nondistended, Normal Bowel Sounds and Tender (Some discomfort in epigastric area)
Neuro: AO x 3
Psych: Calm
Data Reviewed
-
MRI: Report Reviewed by me (MRI of abdomen and MRCP)
Labs: Labs Reviewed by me (From admission)
[2025-01-10] MEDS: HEPARIN 5000 UNITS SC ×2 (00:26→08:43)
[2025-01-10] MEDS: TYLENOL 1000 MG PO (00:31)
[2025-01-10 03:04] VITALS: BP 115/61
[2025-01-10] MEDS: BENADRYL 25 MG IV (03:45)
[2025-01-10] MEDS: FIORICET 1 TAB PO (04:00)
[2025-01-10] MEDS: SOLU-CORTEF 100 MG IV (05:08)
[2025-01-10 06:42] LABS: ALT (SGPT) < 10 U/L (0-35); AST (SGOT) 24 U/L (14-36); Albumin 3.9 g/dl (3.5-5.0); Alkaline Phosphatase 57 U/L (38-126); Total Protein 6.0 g/dl (6.3-8.2)
[2025-01-10 07:50] VITALS: BP 119/58
--- NOTE | 2025-01-10 08:37 | W.PN.GI.CBS2 ---
Today's Communication / Plan
-
Please see assessment and plan for details.
Assessment / Plan
-
1. Chest pain/dilated ducts: Overall atypical chest pain, unclear etiology. Her ducts are mildly dilated, though LFTs are normal and CT scan with contrast did not show any obvious pancreatic mass, ultrasound without any obvious gallstones, MRCP
without any obvious stones or stricture. Repeat LFTs are again normal. At this point we will await MRI with and without contrast to more definitively rule out small pancreatic mass that could have been missed on CT scan and MRI without contrast.
If that is negative then is okay to DC from GI standpoint.
Subjective
Subjective
Date of Service: January 10, 2025
Patient feeling okay, no further episodes of pain, no nausea, vomiting, fever or chills.
Objective
Data Reviewed
Laboratory Data:
Laboratory Results
01/07/25 23:31
01/07/25 23:31
Laboratory Results
Total Bilirubin 0.5 mg/dl (0.2-1.3) 01/10/25 05:42
AST 24 U/L (14-36) 01/10/25 05:42
ALT < 10 U/L (0-35) 01/10/25 05:42
Alkaline Phosphatase 57 U/L (38-126) 01/10/25 05:42
Lipase 145 U/L (23-300) 01/07/25 23:31
Vital Signs and I&O:
Vital Signs
Temp Pulse Resp BP Pulse Ox
98.5 F 72 16 119/58 94
01/10/25 07:50 01/10/25 07:50 01/10/25 07:50 01/10/25 07:50 01/10/25 07:50
I&O
01/09/25 01/10/25 01/11/25
06:59 06:59 06:59
Intake Total 1080 / 1080 1280 / 1280
Balance 1080 / 1080 1280 / 1280
Physical Exam
Physical Exam
General: NAD
Abdomen: normal bowel sounds, soft, no tenderness, no masses or bruits, no ascites
[2025-01-10] MEDS: LIPITOR 80 MG PO (08:42)
[2025-01-10] MEDS: SINEMET 25-100 2 TABLET PO ×2 (08:43→16:14)
[2025-01-10] MEDS: SENOKOT-S 1 TABLET PO (08:43)
[2025-01-10] MEDS: PROTONIX 40 MG PO (08:43)
[2025-01-10 11:18] VITALS: BP 138/76
[2025-01-10] MEDS: BENADRYL 25 MG PO (12:03)
--- NOTE | 2025-01-10 14:16 | W.DCSUMMARY ---
Discharge Summary
Discharge Data
Date of Admission: 01/08/25
Date of Discharge: 01/10/25
-
Pending Results: No
Hospital Course
Primary diagnosis:
Chest pressure with nausea and decreased appetite-unclear etiology
Secondary diagnosis:
Parkinson's disease
Migraine headaches
Hyperlipidemia
Osteoporosis
Hospital course:
Patient presented with acute onset of chest pressure with nausea and decreased appetite for 5 days. No prior history of gallbladder disease. Initial imaging raise the concern for gallbladder disease/biliary ductal disease as there was dilatation
of ductal anatomy. She had an MRI of the abdomen and MRCP which shows unexplained biliary ductal dilatation with no gallbladder disease. LFTs and lipase were normal. GI was consulted who requested an MRI with and without contrast to look for any
pancreatic disease and it showed no evidence of pancreatic disease but showed mild ductal dilatation without choledocholithiasis. LFTs remain normal. She had self limiting GI symptoms and chest pressure. With all the imaging showing no pathology
no further testing was recommended by GI.
She was also seen by cardiology and there was no evidence of acute NC. She had an echocardiogram which showed normal EF, mild aortic stenosis. Recommended outpatient stress test which they will arrange.
Today she was without any recurrence of GI symptoms or chest pressure. She was asymptomatic. She was tolerating diet. Abdomen was soft and nontender today. Afebrile, pulse 83 blood pressure 138/76.
Consultants on board:
GI-Hank Boogie
Cardiology-Pasquale Malin
Discharge Plan
-
Others Tests: You are scheduled for lexiscan nuclear stress test at [facility] 01/15/25 @11:20AM. Please go to the main lobby restaurant front manager to register and they will direct you accordingly.
Referrals:
Jeremi Benoit DO [Family Provider, Family Practice]
Mariana Hernandez PA-C [Specified Professional Personl, Cardiology] - 01/28/25 2:00 pm
Referral Note: You have a cardiology follow-up appointment at the [place] office. Please call with questions
Prescriptions:
No Action
atorvastatin 80 MG tablet
80 mg PO DAILY
Prolia 60 MG/ML syringe
60 mg SQ [id number]
carbidopa-levodopa 25-100 mg Tablet Extended Release
2 tab PO TID
mirabegron [Myrbetriq] 50 mg Tablet Extended Release 24 Hr
50 mg PO DAILY
Discharge Date and Time
Print Language: JAPANESE
[2025-01-10 15:25] VITALS: BP 111/52
== END 2025-01-10 16:30 | disposition home or self-care (01) ==
LOC: 3 WEST ACU 06:45
PROVIDERS: Physician Assistant; Student in an Organized Health Care Education/Training Program; ADMITTING PHYSICIAN Internal Medicine; ATTENDING PHYSICIAN Internal Medicine; CONSULT PHYSICIAN Internal Medicine Gastroenterology; EMERGENCY PHYSICIAN Emergency Medicine; FAMILY PHYSICIAN Family Medicine; OTHER PHYSICIAN Internal Medicine Cardiovascular Disease
DX: R07.89 Other chest pain (principal); R11.0 Nausea; R63.0 Anorexia; E78.00 Pure hypercholesterolemia, unspecified; G20.A1 Parkinson's disease without dyskinesia, without mention of fluctuations; M81.0 Age-related osteoporosis without current pathological fracture; G43.909 Migraine, unspecified, not intractable, without status migrainosus; Z68.24 Body mass index [BMI] 24.0-24.9, adult; Z79.899 Other long term (current) drug therapy; Z82.49 Family history of ischemic heart disease and other diseases of the circulatory system
CPT/HCPCS: 71046; 74177; 74181; 74183; 76700; 80053; 80076; 81003; 81015; 83690; 84484; 85025; 85379; 93005; 93306; 96361; 96374; 96375; 99285; A9585; G0378; Q9967

== ENCOUNTER 2025-01-13 20:57 | Emergency (ER) | payer BC, SELFPAY ==
[2025-01-13 21:02] VITALS: BP 98/63
[2025-01-13 21:40] LABS: COVID-19 Antigen Negative (Negative)
--- NOTE | 2025-01-13 23:23 | ED.GENMED ---
History of Present Illness
General
Chief Complaint: Breathing Problem
Source: patient and spouse
Time Seen by Provider: 01/13/25 23:11
History of Present Illness
History of Present Illness:
79-year-old female presents to the emergency room complaining of dyspnea. Patient states she feels like she is not able to breathe properly and cannot get a deep breath. Symptoms began around 430 this afternoon. Patient also is experiencing
itching which has been present since her recent hospitalization. Patient was admitted for chest /abdominal discomfort recently having been discharged 4 days ago. She was admitted to evaluate possible common bile duct dilatation. Workup was
negative. She also had a cardiology evaluation which was negative here. She is supposed to follow-up for an outpatient stress test.
Past History
Past History
ED Past Medical History: Hypercholesterolemia and Other (migraines)
ED Past Surgical History: Orthopedic (rotator cuff repair)
Social History
Tobacco: Non-smoker
Phy Exam
Physical Exam
Physical Exam:
General: Awake, Alert, Oriented X3. Appears uncomfortable
Vitals: Normal pulse ox, normal heart rate
Head: Atraumatic
Eyes: Pupils equal, EOMI
Throat: Airway intact, no exudates
Neck: Trachea midline
Lungs: Clear and equal b/l
Heart: Regular rate, no murmurs
Abd: Soft, Nontender, No pulsatile mass
Neuro: Nonfocal
Skin: Warm, dry, no rash
Extremities: pulses equal b/l, no edema
Scores
Heart Failure Risk
Heart Failure Risk Score: Not Applicable
Course
Orders/Labs/Results
Orders:
Orders
01/13/25 21:10
COVID-19 Antigen Urgent
Source: Nasal Swab
Influenza A+B Rapid Molecular Urgent
NOEMI Source: Nasal Swab
Specimen Description:
01/13/25 23:21
Diphenhydramine [Benadryl] 50 mg IV NOW STA
Hydrocortisone Sod Succinate [Solu-Cortef] 200 mg IV NOW STA
01/13/25 23:22
Electrocardiogram (*1) Stat
Reason for Study: Other
Other Reason for Exam: chest pain
Cardiac Monitoring- Treatment ONCE
EKG- Treatment ONCE
01/13/25 23:41
Complete Blood Count/With Diff Urgent
Comprehensive Metabolic Panel Urgent
Troponin I Urgent
01/14/25
CT Chest PE Study Urgent
Reason For Exam: sob
01/14/25 00:15
Potassium Chloride 10% Elixir [KCl Elixir] 40 meq PO NOW STA
Abnormal Lab Results
01/13/25
23:41
RBC 3.71 L 10^6/uL
(4.20-5.40)
Hgb 11.7 L g/dL
(12.0-16.0)
Hct 33.6 L %
(37.0-47.0)
MCH 31.5 H pg
(27.0-31.0)
MPV 11.9 H fL
(7.4-10.4)
Absolute Monos (auto) 0.9 H 10^3/uL
(0.1-0.6)
Monocytes % 11.5 H %
(1.7-9.3)
Potassium 3.0 L mmol/L
(3.5-5.1)
Glucose 100 H mg/dl
(70-99)
01/13/25 23:41
01/13/25 23:41
Vital Signs
Initial and Last Documented VS:
Initial Vital Signs
Temp Pulse Resp BP Pulse Ox
98.0 F 100 18 98/63 99
01/13/25 21:02 01/13/25 21:02 01/13/25 21:02 01/13/25 21:02 01/13/25 21:02
Last Documented Vital Signs
Temp Pulse Resp BP Pulse Ox
98.0 F 73 17 131/61 94
01/13/25 21:02 01/14/25 02:15 01/14/25 02:00 01/14/25 02:00 01/14/25 02:00
MDM/Problems Addressed
Differential Diagnosis Includes:
Symptomatic anemia, allergic reaction, PE, ACS
MDM/Problems Addressed:
Patient presents with a sense of dyspnea. Her vital signs are normal. She does not appear to have any increased work of breathing. Workup here is unremarkable including labs, CT of the chest. Potassium was a bit low and oral potassium
supplementation was given. No evidence for any unstable process. Patient stable for discharge home.
*Radiology
Radiology exam reviewed: radiology read reviewed
*Pulse Oximetry
SaO2: 99
Patient hypoxic: no
*EKG
Interpreted by ED Provider?: Yes
Interpretation: normal
Heart Rate: 71
Rate: normal
Rhythm: sinus
[place]: normal axis
Interval: normal interval
QRS Pattern: normal QRS
Ischemia: no ischemia
*Pressure Tester Interpretation
Rate: normal
Interpretation: normal
Rhythm: sinus
*Critical Care Note
Total Time (30-74mins, 75-104mins- exclusive of procedures): Not Applicable
Data Reviewed
Review of Other/Old Records Reveals: Testing and Discharge Summary
ED Attending Note
-
Portions of this chart may have been created with voice recognition software.� Occasional wrong word or��sound alike� substitutions may have occurred due to the inherent limitations of voice recognition software.
Discharge Plan
Departure
Patient Disposition: Home (Routine Discharge)
Date of Disposition: 01/14/25
Time of Disposition: 02:12
Patient with high blood pressure during this ER visit?: Yes
Condition: Good
Discharge Problem:
Acute dyspnea
Instructions: Shortness of Breath (Dyspnea) (DC)
Prescriptions:
No Action
atorvastatin 80 MG tablet
80 mg PO DAILY
Prolia 60 MG/ML syringe
60 mg SQ [id number]
mirabegron [Myrbetriq] 50 mg Tablet Extended Release 24 Hr
50 mg PO DAILY
acetaminophen [Tylenol Extra Strength] 500 mg Tablet
1,000 mg PO Q6HPRN PRN (Reason: mild pain)
carbidopa-levodopa 25-100 mg Tablet
2 tab PO TID
Niacin (Vitamin B3)
2,000 unit PO DAILY
Referrals:
Jeremi Benoit DO [Family Provider, Family Practice]
Interventions
Interventions:
*Risk Screen - Suicide Last Done: 01/13/25 21:04
*General Assessment Last Done: 01/13/25 21:04
*Neglect/Abuse Screening Last Done: 01/13/25 21:04
*ED- Fall Risk Assessment Last Done: 01/14/25 00:58
*ED COVID-19 Vaccine History Last Done: 01/14/25 00:58
Discharge Date and Time
Print Language: TONGAN
[2025-01-13 23:49] LABS: Hematocrit 33.6 % (37.0-47.0); Hemoglobin 11.7 g/dL (12.0-16.0); Mean Corp Hgb Conc. 34.8 g/dL (33.0-37.0); Mean Corpuscular Volume 90.6 fL (81.0-99.0); Nucleated Red Blood Cells % 0 %; Platelet Count 211 10^3/uL (130-400); Red Cell Dist. Width 13.7 % (11.5-14.5)
[2025-01-13 23:52] VITALS: BMI 25.0
[2025-01-13] MEDS: BENADRYL 50 MG IV (23:53)
[2025-01-13] MEDS: SOLU-CORTEF 200 MG IV (23:53)
[2025-01-14] VITALS: BP 148/70
[2025-01-14 00:04] LABS: AST (SGOT) 23 U/L (14-36); Albumin 4.8 g/dl (3.5-5.0); Alkaline Phosphatase 51 U/L (38-126); Blood Urea Nitrogen 12 mg/dl (7-17); Calcium 9.5 mg/dl (8.4-10.2); Carbon Dioxide 24 mmol/L (22-30); Chloride 103 mmol/L (98-107); Estimated Creatinine Clearance 43 ml/min; Glucose 100 mg/dl (70-99); Potassium 3.0 mmol/L (3.5-5.1); Sodium 137 mmol/L (135-145); Total Protein 7.2 g/dl (6.3-8.2); eGFR > 60.00
[2025-01-14 00:16] LABS: Troponin I < 0.012 ng/ml
[2025-01-14 00:24] LABS: ALT (SGPT) < 30 U/L (0-35)
[2025-01-14 01:17] VITALS: BP 151/61
[2025-01-14] MEDS: KCL ELIXIR 40 MEQ PO (01:18)
[2025-01-14 02:00] VITALS: BP 131/61
== END 2025-01-14 02:40 | disposition home or self-care (01) ==
LOC: EMR 20:57
PROVIDERS: Emergency Medicine; EMERGENCY PHYSICIAN Emergency Medicine; FAMILY PHYSICIAN Family Medicine
DX: R06.00 Dyspnea, unspecified (principal); L29.9 Pruritus, unspecified; Z11.52 Encounter for screening for COVID-19; R03.0 Elevated blood-pressure reading, without diagnosis of hypertension; E78.00 Pure hypercholesterolemia, unspecified; G43.909 Migraine, unspecified, not intractable, without status migrainosus; Z88.1 Allergy status to other antibiotic agents; Z91.041 Radiographic dye allergy status
CPT/HCPCS: 99284; 96374; 96375; 71275; 80053; 84484; 85025; 87502; 87811; 93005; Q9967

== ENCOUNTER 2025-01-15 14:32 | Emergency (ER) | payer BC, SELFPAY ==
[2025-01-15] VITALS (8 sets, daily range): BP systolic 100–128; BP diastolic 52–64; PULSE 68–96
[2025-01-15 14:39] LABS: Glucose - Point of Care 131 mg/dl (70-99)
[2025-01-15 14:48] LABS: Hematocrit 35.6 % (37.0-47.0); Hemoglobin 12.1 g/dL (12.0-16.0); Mean Corp Hgb Conc. 34.0 g/dL (33.0-37.0); Mean Corpuscular Volume 92.0 fL (81.0-99.0); Nucleated Red Blood Cells % 0 %; Platelet Count 250 10^3/uL (130-400); Red Cell Dist. Width 14.4 % (11.5-14.5)
[2025-01-15 15:04] LABS: AST (SGOT) 33 U/L (14-36); Albumin 4.9 g/dl (3.5-5.0); Alkaline Phosphatase 46 U/L (38-126); Blood Urea Nitrogen 13 mg/dl (7-17); Calcium 9.5 mg/dl (8.4-10.2); Carbon Dioxide 21 mmol/L (22-30); Chloride 106 mmol/L (98-107); Glucose 113 mg/dl (70-99); Potassium 3.5 mmol/L (3.5-5.1); Sodium 139 mmol/L (135-145); Total Protein 7.4 g/dl (6.3-8.2); eGFR 58.02
[2025-01-15 15:25] LABS: ALT (SGPT) < 10 U/L (0-35)
[2025-01-15] MEDS: NSS 1000 IV (16:02)
--- NOTE | 2025-01-15 16:02 | ED.GENMED ---
History of Present Illness
General
Chief Complaint: Fainting/Passed Out
Time Seen by Provider: 01/15/25 15:00
History of Present Illness
History of Present Illness:
79-year-old female with history of Parkinson's presenting to the emergency department after a near syncopal episode. Patient was at the hospital getting a nuclear stress test. She completed the test, report that she felt fine. She then felt like
she was going to have a bowel movement, went to the bathroom and had an episode of incontinence. While she was trying to clean herself up, became lightheaded. She came out of the bathroom and was with her , started to feel like she was
going to pass out and was lowered to the ground. No report of any full loss of consciousness. notes a similar episode several weeks ago. Patient has been having ongoing dyspnea with unremarkable outpatient workup. Recently had a CT of
her chest and echo with normal EF, no wall motion abnormalities. She has a follow-up appoint with her doctor tomorrow. She does note the past 3 days she has not eaten very much, has been sleeping well. After getting the CAT scan, had pretreatment
due to allergies and has been having ongoing itchiness. Denies any prodromal chest pain or difficulty breathing prior to the event. Is any present chest pain or difficulty breathing. Denies additional acute medical complaint
Past History
Past History
ED Past Medical History: Hypercholesterolemia and Other (migraines)
ED Past Surgical History: Orthopedic (rotator cuff repair)
Social History
Tobacco: Non-smoker
Phy Exam
Physical Exam
Physical Exam:
General: Well-appearing, dry mucous membranes, nontoxic and in no acute distress
HEENT: protecting airway
Neck: appears supple
CV: Normal heart rate, regular rhythm
Resp: No accessory muscle use, no increased work of breathing, lungs clear to auscultation bilaterally
Abd: Soft and non-distended, no tenderness to palpation
Extremities: No deformities, no swelling
Neuro: alert, no focal neurologic deficit
: deferred
Rectal: deferred
Psych: Normal affect
Skin: Intact
Course
Orders/Labs/Results
Orders:
Orders
01/15/25 14:38
Electrocardiogram (*1) Urgent
Reason for Study: Syncope
EKG- Treatment ONCE
01/15/25 14:40
Complete Blood Count/With Diff Urgent
Comprehensive Metabolic Panel Urgent
01/15/25 15:39
Orthostatic VS- Treatment ONCE
0.9% Sodium Chloride 1000 ml [Nss] 1,000 ml IV BOLUS
01/15/25 17:22
Dexamethasone Pf [Decadron] 10 mg PO NOW STA
Abnormal Lab Results
01/15/25 01/15/25
14:37 14:40
RBC 3.87 L 10^6/uL
(4.20-5.40)
Hct 35.6 L %
(37.0-47.0)
MCH 31.3 H pg
(27.0-31.0)
MPV 11.9 H fL
(7.4-10.4)
Absolute Monos (auto) 1.0 H 10^3/uL
(0.1-0.6)
Monocytes % 9.7 H %
(1.7-9.3)
Carbon Dioxide 21 L mmol/L
(22-30)
Glucose 113 H mg/dl
(70-99)
POC Glucose 131 H mg/dl
(70-99)
01/15/25 14:40
01/15/25 14:40
Vital Signs
Initial and Last Documented VS:
Initial Vital Signs
Temp Pulse Resp BP Pulse Ox
98.1 F 78 18 120/52 99
01/15/25 14:35 01/15/25 14:35 01/15/25 14:35 01/15/25 14:35 01/15/25 14:35
Last Documented Vital Signs
Temp Pulse Resp BP Pulse Ox
98.1 F 78 18 120/52 99
01/15/25 14:35 01/15/25 14:35 01/15/25 14:35 01/15/25 14:35 01/15/25 16:04
MDM/Problems Addressed
MDM/Problems Addressed:
79-year-old female presenting after near syncopal episode. Vital signs on arrival arenormal.
On exam patient resting comfortably, no acute distress or discomfort. No report of any full syncopal episode. EKG obtained on arrival, nonischemic. Blood glucose within normal limits. Ultimately suspect vasovagal etiology. Episode occurred
after a nuclear stress test and patient also notes poor sleeping habits in the past few days as well as poor eating. Suspect volume depletion and dehydration. No focal neurologic deficits, benign cardiac and pulmonary exam. Without any present
concern for central neurologic process. Will treat with IV fluids and obtain orthostatic vital signs. Will also screen with laboratory analysis and reassess.
17:30- Labs are unremarkable. Orthostatics are positive from supine to standing, however patient was asymptomatic. Continues to suspect volume depletion component. Patient otherwise remains stable. Feel stable for discharge. She continues to
note diffuse pruritus, does not want to try any more Benadryl. Will administer 1 dose of Decadron. Patient has outpatient appointment with her doctor coming up tomorrow. Return discussed and patient verbalized understanding
*Pulse Oximetry
SaO2: 99
Oxygen Mode of Delivery: Room air
Patient hypoxic: no
*EKG
Interpreted by ED Provider?: Yes
EKG Intrepretation Date: 01/15/25
EKG Intrepretation Time: 16:05
Interpretation: normal
Heart Rate: 76
Rate: normal
Rhythm: sinus
[place]: normal axis
Interval: normal interval
QRS Pattern: normal QRS
Ischemia: no ischemia
*Critical Care Note
Total Time (30-74mins, 75-104mins- exclusive of procedures): Not Applicable
ED Attending Note
-
Portions of this chart may have been created with voice recognition software.� Occasional wrong word or��sound alike� substitutions may have occurred due to the inherent limitations of voice recognition software.
Discharge Plan
Departure
Prescriptions:
No Action
atorvastatin 80 MG tablet
80 mg PO DAILY
Prolia 60 MG/ML syringe
60 mg SQ [id number]
mirabegron [Myrbetriq] 50 mg Tablet Extended Release 24 Hr
50 mg PO DAILY
acetaminophen [Tylenol Extra Strength] 500 mg Tablet
1,000 mg PO Q6HPRN PRN (Reason: mild pain)
carbidopa-levodopa 25-100 mg Tablet
2 tab PO TID
Niacin (Vitamin B3)
2,000 unit PO DAILY
Referrals:
Jeremi Benoit DO [Family Provider, Family Practice]
Interventions
Interventions:
*Risk Screen - Suicide Last Done: 01/15/25 14:35
*General Assessment Last Done: 01/15/25 14:35
*Neglect/Abuse Screening Last Done: 01/15/25 14:35
*ED COVID-19 Vaccine History Last Done: 01/15/25 14:35
Discharge Date and Time
Print Language: ICELANDIC
[2025-01-15] MEDS: DECADRON 10 MG PO (17:31)
== END 2025-01-15 18:02 | disposition home or self-care (01) ==
LOC: EMR 14:32
PROVIDERS: EMERGENCY PHYSICIAN Student in an Organized Health Care Education/Training Program; FAMILY PHYSICIAN Family Medicine
DX: R55 Syncope and collapse (principal); G20.A1 Parkinson's disease without dyskinesia, without mention of fluctuations; E78.00 Pure hypercholesterolemia, unspecified
CPT/HCPCS: 99283; 78452; 80053; 82962; 85025; 93005; 93017; A9500; J2785

== ENCOUNTER 2025-01-17 21:05 | Emergency (ER) | payer BC, MEDICARE, SELFPAY ==
[2025-01-17 21:13] VITALS: BP 110/77
[2025-01-17 21:51] LABS: Hematocrit 33.2 % (37.0-47.0); Hemoglobin 11.4 g/dL (12.0-16.0); Mean Corp Hgb Conc. 34.3 g/dL (33.0-37.0); Mean Corpuscular Volume 91.0 fL (81.0-99.0); Nucleated Red Blood Cells % 0 %; Platelet Count 252 10^3/uL (130-400); Red Cell Dist. Width 14.2 % (11.5-14.5)
[2025-01-17 22:04] VITALS: BP 157/60
[2025-01-17 22:14] LABS: ALT (SGPT) < 10 U/L (0-35); AST (SGOT) 29 U/L (14-36); Albumin 4.7 g/dl (3.5-5.0); Alkaline Phosphatase 52 U/L (38-126); Blood Urea Nitrogen 10 mg/dl (7-17); Calcium 9.5 mg/dl (8.4-10.2); Carbon Dioxide 24 mmol/L (22-30); Chloride 106 mmol/L (98-107); Glucose 105 mg/dl (70-99); Potassium 3.4 mmol/L (3.5-5.1); Sodium 141 mmol/L (135-145); Total Protein 7.2 g/dl (6.3-8.2); eGFR > 60.00
[2025-01-17 23:00] VITALS: BP 149/61
[2025-01-17] MEDS: NSS 500 IV (23:24)
[2025-01-17] MEDS: DECADRON 10 MG IV (23:25)
[2025-01-17] MEDS: COMPAZINE 10 MG IV (23:25)
[2025-01-18] VITALS: BP 140/58
[2025-01-18 01:00] VITALS: BP 138/59
--- NOTE | 2025-01-18 01:01 | ED.GENMED ---
History of Present Illness
General
Chief Complaint: Headache
Source: patient and spouse
Time Seen by Provider: 01/17/25 22:48
History of Present Illness
History of Present Illness:
Note:
CHIEF COMPLAINT(S)
Terrible headache and rash with itching.
HISTORY OF PRESENT ILLNESS
The patient is a 79-year-old female with a history of migraines who presents with complaints of a severe headache and a rash with itching. The patient reports having mild headaches for approximately 10 days, with a significant increase in intensity
today. She describes the headache as diffuse, unlike her usual left-sided migraines. The headache is associated with terrible nausea and photophobia. There have been no fevers or recent injuries reported. The patient also reports a rash with
persistent itching, noted all over the body, which developed concurrently with the onset of her mild headaches.
She visited the emergency room yesterday for similar complaints, including the inability to take a deep breath and a sensation of chest pressure, which she describes as 'someone sitting on her chest.' These respiratory symptoms have since improved,
although she continues to experience difficulty with deep breaths. The patient has been experiencing itching for over a week, and it was suspected by a network doctor that she might be allergic to diphenhydramine (Benadryl), which made her symptoms
worse and left her feeling lethargic.
She has tried diphenhydramine without relief. No known rash was observed despite the redness from scratching. The patients CT scan was recently reviewed and showed no signs of bleeding. Additionally, a stress test performed on was reported
as normal.
ALLERGIES
- Azithromycin (known as Zithromax) and contrast dye.
PHYSICAL EXAM
General: Alert, no acute distress.
Skin: Warm, dry, redness from scratching observed but no visible rash.
Head: Normocephalic, atraumatic.
Neck: Supple, trachea midline.
Eye, Ears, Nose, Mouth, and Throat: Oral mucosa moist.
Cardiovascular: Normal peripheral perfusion, heart regular without murmur.
Respiratory: Respirations are non-labored, lungs clear.
Gastrointestinal: Abdomen non-distended.
Musculoskeletal: Normal range of motion, normal strength.
Neurological: Alert and oriented to person, place, time, and situation, no focal neurological deficits observed.
Psychiatric: Cooperative, appropriate mood & affect.
PLAN
1. Administer compazine for headache relief and nausea improvement.
2. Administer steroids for potential relief of headache and rash symptoms, acknowledging the delayed onset of effectiveness.
3. Provide fluids for hydration.
4. Avoid diphenhydramine due to suspected adverse reaction.
DIFFERENTIAL DIAGNOSIS
The Differential Diagnosis includes, in no particular order and is not limited to:
1. Cluster headache
2. Tension-type headache
3. Allergic reaction
4. Drug-induced headache
5. Chronic migraine
6. Sinusitis
7. Viral exanthem
8. Contact dermatitis
9. Medication-induced rash
10. Anxiety-induced hyperventilation
CARE-UPDATE
01/18/25 - 00:59
Headache has significantly improved; however, the patient continues to experience mild nausea and persistent pruritus. Discussed potential side effects of the medication, and plans for re-evaluation. Will monitor symptoms and consider alternative
management if no improvement.
Disposition:
SUMMARY OF ENCOUNTER
The patient, a 79-year-old female with a history of migraines, presented to the emergency department with severe headache, nausea, photophobia, and a rash with itching. The CT scan, recently reviewed, showed no abnormalities, ruling out intracranial
causes such as bleeding. Laboratory results showed mild leukocytosis and mild hypokalemia. The electrocardiogram (EKG) showed normal sinus rhythm without specific ST-T changes. The patient experienced a slight improvement in her headache during her
stay. There were no signs of meningitis, fever, or trauma observed. Given the multiple recent visits to healthcare facilities and current stable condition, it was deemed reasonable to discharge the patient for outpatient follow-up with her family
doctor.
DISPOSITION
Discharge.
ASSESSMENT
The patient presents with a severe headache and itching rash. Differential includes cluster headache, tension-type headache, allergic reaction, drug-induced headache, chronic migraine, sinusitis, viral exanthem, contact dermatitis,
medication-induced rash, and anxiety-induced hyperventilation. Laboratory results and imaging showed mild leukocytosis, mild hypokalemia, and no intracranial abnormalities which assisted in ruling out critical conditions.
EMERGENCY TREATMENTS ADMINISTERED
Steroids were administered for potential relief of both the headache and rash symptoms.
PLAN
The plan includes discontinuation of diphenhydramine due to suspected adverse reactions and encouraging follow-up with the primary care doctor for continued management and assessment of headache and rash improvement. Steroids were added to address
pruritus and headache, with a recommendation for outpatient evaluation.
INDEPENDENT REVIEW OF LABS AND INTERPRETATION OF TESTS
My independent review of the CBC indicates mild leukocytosis at 12.2. My independent review of the complete metabolic profile shows mild hypokalemia at 3.4. My independent interpretation of the CT scan showed no intracranial abnormalities. My
independent interpretation of the EKG is normal sinus rhythm, normal axis, with no specific ST-T changes.
MEDICATION RECONCILIATION
Steroids were administered in the emergency department.
MEDICAL DECISION MAKING
-Complexity of Data Reviewed: Chronic conditions affecting care include migraine history. Differential diagnosis includes cluster headache, tension-type headache, allergic reaction, drug-induced headache, chronic migraine, sinusitis, viral exanthem,
contact dermatitis, medication-induced rash, anxiety-induced hyperventilation.
-Data:
Category 1
My independent interpretation of the CT scan showed no abnormalities. My independent interpretation of the EKG is normal sinus rhythm with normal axis.
Category 2
Not applicable.
Category 3
Not applicable.
-Risk:
Consideration of Admission/Observation: Escalation of care including admission/observation was considered given the complexity and risk of the patients presenting complaint, exam findings, and/or their underlying comorbidities. However, ultimately I
feel the patient is safe for outpatient management with close follow-up. Reasoning: Work-up reassuring, does not reveal any acute life/organ threatening processes, patients symptoms well controlled upon reevaluation, reexamination is reassuring,
vitals are stable, patient agreeable with discharge, reliable for follow-up.
DIAGNOSIS
Pruritus.
Headache
Past History
Past History
ED Past Medical History: Hypercholesterolemia and Other (migraines)
ED Past Surgical History: Orthopedic (rotator cuff repair)
Social History
Tobacco: Non-smoker
Phy Exam
Physical Exam
Physical Exam:
.
Course
Orders/Labs/Results
Orders:
Orders
01/17/25 21:[address] [CT Head W/o Iv Contrast] Urgent
Comment:
Reason For Exam: headache
01/17/25 21:33
EKG [Electrocardiogram (*1)] Urgent
Reason for Study: Shortness of Breath
EKG- Treatment ONCE
01/17/25 21:35
CMP [Comprehensive Metabolic Panel] Urgent
Complete Blood Count/With Diff Urgent
01/17/25 23:15
0.9% Sodium Chloride 500 ml [Nss] 500 ml IV BOLUS
Dexamethasone Sod Phosphate [Decadron] 10 mg IV NOW STA
Prochlorperazine [Compazine] 10 mg IV NOW STA
01/18/25 00:56
Ketorolac [Toradol] 15 mg IV NOW STA
Ondansetron Injectable [Zofran] 4 mg IV NOW STA
Abnormal Lab Results
01/17/25
21:35
WBC 12.2 H 10^3/uL
(4.8-10.8)
RBC 3.65 L 10^6/uL
(4.20-5.40)
Hgb 11.4 L g/dL
(12.0-16.0)
Hct 33.2 L %
(37.0-47.0)
MCH 31.2 H pg
(27.0-31.0)
MPV 11.9 H fL
(7.4-10.4)
Absolute Neuts (auto) 7.5 H 10^3/uL
(1.4-6.5)
Absolute Monos (auto) 1.0 H 10^3/uL
(0.1-0.6)
Potassium 3.4 L mmol/L
(3.5-5.1)
Glucose 105 H mg/dl
(70-99)
01/17/25 21:35
01/17/25 21:35
Vital Signs
Initial and Last Documented VS:
Initial Vital Signs
Temp Pulse Resp BP Pulse Ox
98.5 F 98 18 110/77 99
01/17/25 21:13 01/17/25 21:13 01/17/25 21:13 01/17/25 21:13 01/17/25 21:13
Last Documented Vital Signs
Temp Pulse Resp BP Pulse Ox
99.4 F 73 16 140/58 97
01/17/25 21:27 01/18/25 00:15 01/18/25 00:15 01/18/25 00:00 01/18/25 00:15
*Radiology
Radiology exam reviewed: radiology read reviewed
*Pulse Oximetry
SaO2: 97
Oxygen Mode of Delivery: Room air
Patient hypoxic: no
*EKG
Interpreted by ED Provider?: Yes
Interpretation: abnormal
Rate: normal
Rhythm: sinus
[place]: normal axis
Ischemia: non-specific ST changes
*Critical Care Note
Total Time (30-74mins, 75-104mins- exclusive of procedures): Not Applicable
ED Attending Note
-
Portions of this chart may have been created with voice recognition software.� Occasional wrong word or��sound alike� substitutions may have occurred due to the inherent limitations of voice recognition software.
Discharge Plan
Departure
Patient Disposition: Home (Routine Discharge)
Date of Disposition: 01/18/25
Time of Disposition: 01:09
Patient with high blood pressure during this ER visit?: No
Discharge Problem:
Headache, Pruritus
Instructions: Headache, Adult (DC), Itchy skin
Prescriptions:
No Action
atorvastatin 80 MG tablet
80 mg PO DAILY
Prolia 60 MG/ML syringe
60 mg SQ [id number]
mirabegron [Myrbetriq] 50 mg Tablet Extended Release 24 Hr
50 mg PO DAILY
acetaminophen [Tylenol Extra Strength] 500 mg Tablet
1,000 mg PO Q6HPRN PRN (Reason: mild pain)
carbidopa-levodopa 25-100 mg Tablet
2 tab PO TID
Niacin (Vitamin B3)
2,000 unit PO DAILY
Referrals:
Jeremi Benoit DO [Family Provider, Family Practice]
Activity Restrictions/Additional Instructions:
Please see your doctor in the next 2 to 3 days for follow-up and reevaluation. Return immediately for neck pain, fevers, vomiting, worsening headache, weakness of any kind or any other concerns. As discussed use skin moisturizer to see if that
helps at all with your skin itching.
Interventions
Interventions:
*Risk Screen - Suicide Last Done: 01/17/25 21:13
*General Assessment Last Done: 01/17/25 21:13
*Neglect/Abuse Screening Last Done: 01/17/25 21:13
*ED- Fall Risk Assessment Last Done: 01/17/25 21:13
*ED COVID-19 Vaccine History Last Done: 01/17/25 21:13
ED- Neurological Assessment Last Done: 01/17/25 22:49
Discharge Date and Time
Print Language: PERUVIAN
[2025-01-18] MEDS: ZOFRAN 4 MG IV (01:15)
[2025-01-18] MEDS: TORADOL 15 MG IV (01:15)
== END 2025-01-18 01:37 | disposition home or self-care (01) ==
LOC: EMR 21:05
PROVIDERS: Emergency Medicine; EMERGENCY PHYSICIAN Emergency Medicine; FAMILY PHYSICIAN Family Medicine
DX: R51.9 Headache, unspecified (principal); L29.9 Pruritus, unspecified; R06.02 Shortness of breath; R11.0 Nausea; H53.149 Visual discomfort, unspecified; R09.89 Other specified symptoms and signs involving the circulatory and respiratory systems; E87.6 Hypokalemia; E78.00 Pure hypercholesterolemia, unspecified; Z91.041 Radiographic dye allergy status; Z88.1 Allergy status to other antibiotic agents
CPT/HCPCS: 99284; 96374; 96375 ×3; 70450; 80053; 85025; 93005

== ENCOUNTER 2025-01-23 11:38 | Emergency (ER) | payer BC, MEDICARE, SELFPAY ==
[2025-01-23] VITALS (7 sets, daily range): BP systolic 98–149; BP diastolic 48–68; BMI 25.4
[2025-01-23 11:56] LABS: Hematocrit 34.1 % (37.0-47.0); Hemoglobin 11.7 g/dL (12.0-16.0); Mean Corp Hgb Conc. 34.3 g/dL (33.0-37.0); Mean Corpuscular Volume 91.4 fL (81.0-99.0); Nucleated Red Blood Cells % 0 %; Platelet Count 249 10^3/uL (130-400); Red Cell Dist. Width 14.4 % (11.5-14.5)
[2025-01-23 12:11] LABS: ALT (SGPT) < 10 U/L (0-35); AST (SGOT) 20 U/L (14-36); Albumin 4.5 g/dl (3.5-5.0); Alkaline Phosphatase 46 U/L (38-126); Blood Urea Nitrogen 15 mg/dl (7-17); Calcium 9.3 mg/dl (8.4-10.2); Carbon Dioxide 27 mmol/L (22-30); Chloride 104 mmol/L (98-107); Glucose 111 mg/dl (70-99); Lipase 79 U/L (23-300); Potassium 4.0 mmol/L (3.5-5.1); Sodium 138 mmol/L (135-145); Total Protein 7.0 g/dl (6.3-8.2); eGFR > 60.00
--- NOTE | 2025-01-23 15:27 | ED.GENMED ---
History of Present Illness
General
Chief Complaint: Abdominal Pain
Source: patient
Exam Limitations: none
Time Seen by Provider: 01/23/25 15:08
Nursing documentation reviewed up to this point in time: agreed with
History of Present Illness
History of Present Illness:
The patient is a 79-year-old female who reports lower abdominal pain that started today. Patient reports she 'only notices it when somebody pushes on her abdomen'. Patient reports that she has been in the emergency department several times
recently involving chest pain as well as worsening migraine headaches and an itchy rash. Patient reports that her chest pain is gone. She reports she still has a headache but not as severe as before. She reports her itchy rash is nearly gone and
attributes it to an allergic reaction from Benadryl. Patient reports that she went to her primary care doctor this morning for a follow-up for all of these recent medical issues and when she told her doctor about the lower abdominal pain, her
doctor referred her to the ED. The patient reports she also has had about 4 episodes of vomiting over the last 4 weeks and was told by her PCP that she should follow-up with a GI doctor for this. She has not been started on any antiacid
medication. She reports a yellow loose bowel movement yesterday but denies any blood or diarrhea. She denies any vomiting in the last 48 hours. She denies fever. She reports at rest she does not notice her abdominal pain until someone pushes on
it. She reports that her doctor also found her blood pressure to be low in the office. She denies lightheadedness and dizziness.
Past History
Past History
ED Past Medical History: Hypercholesterolemia and Other (migraines)
ED Past Surgical History: Appendectomy and Orthopedic (rotator cuff repair)
Social History
Tobacco: Non-smoker
Alcohol: None
Drug: None
Personal: Other
Living: with family
Employment: Other
Family History
Family History: Other
Review of Systems
Review of Systems
Allergies reviewed?: Yes
All Other Systems: ROS reviewed and negative except as documented in HPI and ROS
Constitutional: Reports no symptoms
EENT: Reports no symptoms
Respiratory: Reports no symptoms
Cardiac: Reports no symptoms
ABD/GI: Reports abdominal pain
: Reports no symptoms
Musculoskeletal: Reports no symptoms
Skin: Reports itching (Itchy rash for several days that is now improved) and rash
Neurological: Reports headache (Patient reports a typical daily migraine but nothing severe)
Endocrine: Reports no symptoms
Hematologic/Lymphatic: Reports no symptoms
Psychiatric: Reports no symptoms
Phy Exam
Physical Exam
Physical Exam:
Physical Exam
General: no apparent distress, not acutely ill. Patient appears well and comfortable.
Neck: supple. no meningeal signs. normal psoterior pharynx
Heart: s1/s2 regular rate and rhythm, no murmur. equal radial pulses.
Lungs: no acute respiratory distress. clear bilaterally
Abdomen: Normal bowel sounds. Soft throughout. Nondistended. Mild lower bilateral abdominal tenderness without rebound or guarding. No pulsatile mass
Neuro: alert and oriented. no focal neurological deficits
Skin: no rash
Psychiatric: well kept. interactive and cooperative
Extremities: no edema. no calf tenderness. negative homans. good distal pulses
Course
Orders/Labs/Results
Orders:
Orders
01/23/25 11:47
Complete Blood Count/With Diff Urgent
Comprehensive Metabolic Panel Urgent
Lipase Urgent
01/23/25 15:25
CT Abd/pel (oral only)-[facility] Only Urgent
Comment:
Reason For Exam: mid and lower abdominal pain
Iohexol [Omnipaque] See Protocol PO NOW STA
01/23/25 15:27
0.9% Sodium Chloride 1000 ml [Nss] 1,000 ml IV BOLUS
01/23/25 18:08
Urinalysis Reflex To Culture Urgent
Date Specimen was Collected: 01/23/25
Time Specimen was Collected: 17:55
Urine Microscopic Reflex Cult Urgent
Urine Culture Urgent
NOEMI Source: U
Specimen Description:
Date Specimen was Collected: 01/23/25
Time Specimen was Collected: 17:55
01/23/25 20:14
Sulfamethox./Trimethoprim Ds [Bactrim Ds 800 mg/160 mg] 1 tablet PO NOW STA
Abnormal Lab Results
01/23/25 01/23/25
11:47 18:08
RBC 3.73 L 10^6/uL
(4.20-5.40)
Hgb 11.7 L g/dL
(12.0-16.0)
Hct 34.1 L %
(37.0-47.0)
MCH 31.4 H pg
(27.0-31.0)
MPV 11.6 H fL
(7.4-10.4)
Glucose 111 H mg/dl
(70-99)
Urine Ketones 2+ A
(Negative)
Ur Occult Blood Reflex 1+ A
(Negative)
Leukocyte Esterase Rfl 3+ A
(Negative)
Urine WBC (Reflex) 50-60 A /HPF
(0-5)
Urine Bacteria (Reflex) Moderate A
(Negative)
Urine Albumin (Reflex) 1+ A
(Neg - Trace)
01/23/25 11:47
01/23/25 11:47
Vital Signs
Initial and Last Documented VS:
Initial Vital Signs
Temp Pulse Resp BP Pulse Ox
98.0 F 89 20 98/68 99
01/23/25 11:40 01/23/25 11:40 01/23/25 11:40 01/23/25 11:40 01/23/25 11:40
Last Documented Vital Signs
Temp Pulse Resp BP Pulse Ox
98.0 F 69 16 134/59 94
01/23/25 11:40 01/23/25 17:30 01/23/25 17:30 01/23/25 19:00 01/23/25 19:30
MDM/Problems Addressed
Differential Diagnosis Includes:
Acute UTI, acute diverticulitis
MDM/Problems Addressed:
Patient reports acute lower abdominal pain
Chronic conditions affecting care: Previous abdomnial surgery
Acute Exacerbation and/or Progression of Chronic Illness:
Patient may have a partial small bowel obstruction due to previous abdominal surgery
Acute Exacerbation and/or Progression of Chronic Illness: Previous abdomnial surgery
*Radiology
Radiology exam reviewed: radiology read reviewed
*Pulse Oximetry
SaO2: 99
Oxygen Mode of Delivery: Room air
Patient hypoxic: no
Comment: 99% on room air
*EKG
Interpreted by ED Provider?: NA
*Maple [employer] Maker Interpretation
Rate: normal
Interpretation: normal
Rhythm: sinus
*Critical Care Note
Total Time (30-74mins, 75-104mins- exclusive of procedures): Not Applicable
Data Reviewed
Review of Other/Old Records Reveals: Radiology Studies (Abdominal MRI reviewed from 2024 which shows dilated hepatic ducts without any visible signs of mass or gallstones)
Source: patient and family
Patient Management
Social determinants of health affecting care: Living situation and Strong social support
Update Note
Update Note:
Patient remains extremely well and comfortable throughout her entire ED visit. She has been here for several hours without any sign of discomfort, nausea, vomiting or fever.
ED Attending Note
-
Portions of this chart may have been created with voice recognition software.� Occasional wrong word or��sound alike� substitutions may have occurred due to the inherent limitations of voice recognition software.
Discharge Plan
Departure
Patient Disposition: Home (Routine Discharge)
Date of Disposition: 01/23/25
Time of Disposition: 20:15
Patient with high blood pressure during this ER visit?: No
Condition: Good
Covid-19: Not Applicable
Discharge Problem:
Abdominal pain, lower, Acute UTI
Instructions: Urinary tract infections in adults
Prescriptions:
New
sulfamethoxazole-trimethoprim [Bactrim DS] 800-160 mg tablet
1 tab PO BID Qty: 10 0RF
No Action
atorvastatin 80 MG tablet
80 mg PO DAILY
Prolia 60 MG/ML syringe
60 mg SQ [id number]
mirabegron [Myrbetriq] 50 mg Tablet Extended Release 24 Hr
50 mg PO DAILY
acetaminophen [Tylenol Extra Strength] 500 mg Tablet
1,000 mg PO Q6HPRN PRN (Reason: mild pain)
carbidopa-levodopa 25-100 mg Tablet
2 tab PO TID
Niacin (Vitamin B3)
2,000 unit PO DAILY
Referrals:
Jeremi Benoit DO [Family Provider, Family Practice]
Activity Restrictions/Additional Instructions:
Return for any fever or persistent vomiting
Interventions
Interventions:
*Risk Screen - Suicide Last Done: 01/23/25 16:07
*General Assessment Last Done: 01/23/25 11:40
*Neglect/Abuse Screening Last Done: 01/23/25 16:07
*ED- Fall Risk Assessment Last Done: 01/23/25 16:07
*ED COVID-19 Vaccine History Last Done: 01/23/25 16:07
QY-Ifcsye-Whcwqossfu Assessment Last Done: 01/23/25 16:12
Discharge Date and Time
Print Language: [place]
[2025-01-23] MEDS: OMNIPAQUE 50 ML PO (16:00)
[2025-01-23] MEDS: NSS 1000 IV (16:09)
[2025-01-23 18:21] LABS: Urine Character Clear (Clear)
[2025-01-23 18:39] LABS: Urine Red Blood Cell 0-2 /HPF (0-2); Urine Squamous Cell >30 /LPF (Few); Urine White Cell 50-60 /HPF (0-5)
[2025-01-23] MEDS: BACTRIM DS 800 MG/160 MG 1 TABLET PO (20:22)
== END 2025-01-23 20:49 | disposition home or self-care (01) ==
LOC: EMR 11:38
PROVIDERS: Emergency Medicine; EMERGENCY PHYSICIAN Emergency Medicine; FAMILY PHYSICIAN Family Medicine
DX: N39.0 Urinary tract infection, site not specified (principal); R10.9 Unspecified abdominal pain
CPT/HCPCS: 99284; 96360; 74176; 80053; 81003; 81015; 83690; 85025; 87086